=== PATIENT | female | born 1990 | race Caucasian/White ===

== ENCOUNTER 2020-04-05 17:21 | Emergency (ER) | payer BC, OTHER ==
--- NOTE | 2020-04-05 17:55 | ERPHSYRPT ---
- History of Present Illness Time Seen by Provider: 04/05/20 17:45 Source: patient Exam Limitations: no limitations Physician History: 29 years old female presented in the ER with chief complaint of right shoulder pain after she tripped and fell on the ground, hitting her right shoulder against the ground almost an hour prior to arrival. She is complaining of sharp shooting pain which is aggravated with movements and partial relief with holding still. No swelling of the shoulder. No injury anywhere else. Patient reports she moved her shoulder after that and heard a popping sound. No numbness tingling or weakness of right upper extremity. Occurred: just prior to arrival Method of Injury: fell Quality: constant, sharpness Severity of Pain-Max: moderate Severity of Pain-Current: moderate Extremities Pain Location: shoulder: right Modifying Factors: Improves With: immobilization, movement Associated Symptoms: none Allergies/Adverse Reactions: cephalexin [From Keflex] Allergy (Verified 04/05/20 18:09) - Review of Systems Constitutional: No Symptoms Eyes: No Symptoms Ears, Nose, & Throat: No Symptoms Respiratory: No Symptoms Cardiac: No Symptoms Musculoskeletal: Fall, Injury, Joint Pain Skin: No Symptoms Neurological: No Symptoms Psychological: No Symptoms - Nursing Vital Signs Nursing Vital Signs: Initial Vital Signs Temperature 98.0 F 04/05/20 18:02 Pulse Rate 78 04/05/20 18:02 Respiratory Rate 16 04/05/20 18:02 Blood Pressure 130/73 04/05/20 18:02 O2 Sat by Pulse Oximetry 100 04/05/20 18:02 Pain Scale Pain Intensity 2 - Physical Exam General Appearance: no apparent distress Eyes, Ears, Nose, Throat Exam: normal ENT inspection Neck Exam: normal inspection, non-tender, supple, full range of motion Cardiovascular/Respiratory Exam: chest non-tender, normal breath sounds, regular rate/rhythm Shoulder Exam: normal inspection, bone tenderness, limited ROM (Right shoulder. Pain is reproducible with minimal movements. Intact distal neurovascular.), pain, soft tissue tenderness, swelling Elbow/Forearm Exam: normal inspection, non-tender, no evidence of injury Wrist Exam: normal inspection Hand Exam: normal inspection Neuro/Tendon Exam: normal sensation, normal motor functions Mental Status Exam: alert, oriented x 3 Skin Exam: normal color SpO2 Interpretation: normal O2 Delivery: Room Air Ordered Tests: Active Orders 24 hr Category Date Time Status SHOULDER Stat Exams 04/05/20 18:46 Taken - Progress Progress: unchanged Progress Note: Offered pain medication which she refused. Doubt fracture dislocation. I believe patient has shoulder contusion with some ligamentous injury. Given sling. Recommended Tylenol ibuprofen and outpatient Ortho clinic follow-up. Counseled pt/family regarding: need for follow-up, rad results - Departure Departure Disposition: Home Clinical Impression: Right shoulder strain Qualifiers: Encounter type: initial encounter Qualified Code(s): S46.911A - Strain of unspecified muscle, fascia and tendon at shoulder and upper arm level, right arm, initial encounter Condition: Stable Critical Care Time: No Referrals: ENE REYNOLDS NP [NON-STAFF PHY W/O PRIVILEGES] - Follow Up with PCP/3 days ARCELIA VEGA NP [NON-STAFF PHY W/O PRIVILEGES] - (2 days for reevaluation) Instructions: Shoulder Sprain (DC) Additional Instructions: Use Tylenol/ibuprofen as needed for pain. Follow-up with primary care and Ortho clinic for reevaluation. Return to ER for any worsening. Prescriptions: Ibuprofen 600 mg PO Q6HPRN PRN 10 Days #20 tablet PRN Reason: Pain
[2020-04-05 19:04] VITALS: BP 127/62; PULSE 72; O2SAT 99
--- NOTE | 2020-04-05 21:11 | XRAY ---
Indication: Pain following fall. Comparison: None 3 view right shoulder obtained. No bony, articular, or soft tissue abnormalities.
== END 2020-04-05 19:08 | disposition home or self-care (01) ==
LOC: ED 17:21
DX: S46.911A Strain of unspecified muscle, fascia and tendon at shoulder and upper arm level, right arm, initial encounter (principal); M25.511 Pain in right shoulder; W01.10XA Fall on same level from slipping, tripping and stumbling with subsequent striking against unspecified object, initial encounter; Y93.9 Activity, unspecified; Y92.9 Unspecified place or not applicable; Y99.9 Unspecified external cause status
CPT/HCPCS: 73030; 99283